=== PATIENT | male | born 1950 | race Caucasian/White ===

== ENCOUNTER 2018-02-18 11:25 | Emergency (ER) | payer MEDICARE, SELFPAY ==
[2018-02-18 11:28] VITALS: BP 147/92; PULSE 89; RESP 20; TEMP 36.9; O2SAT 98; BMI 34.4
--- NOTE | 2018-02-18 12:19 | ED.ABDPAIN ---
HPI - Abdominal Pain General Chief Complaint: Abdominal Pain Stated Complaint: TERRIBLE LOWER LEFT SIDED PAIN Time Seen by Provider: 02/18/18 11:49 Source: patient Mode of arrival: ambulatory Limitations: no limitations History of Present Illness HPI narrative: 68-year-old male, nonsmoker presents with a chief complaint of severe left lower quadrant pain that started about 1 week ago. It is gradual in onset and and has been rather persistent. His pain is worse with motion and improves with rest. He denies any radiation. He denies associated symptoms such as nausea, vomiting or diarrhea. He has had no fever or chills. His most recent colonoscopy was not all that long ago and did not show any abnormal findings. He denies any dysuria, frequency or urgency. He denies any history of kidney stones MD complaint: abdominal pain Onset (ago): day(s) Pain Consistency: constant Location: LLQ Severity: moderate Quality: cramping, stabbing and aching Radiation: none Migration to: no migration Relieving factors: rest Exacerbating factors: movement Associated symptoms: denies other symptoms Related Data Home Medications Medication Instructions Recorded Confirmed Vitamin 1 tab PO DAILY 02/18/18 02/18/18 allopurinol 300 mg PO DAILY 02/18/18 02/18/18 aspirin 81 mg PO DAILY 02/18/18 02/18/18 ciclopirox 1 applic TOPICAL BID 02/18/18 02/18/18 hydrocortisone 1 applic TOPICAL DAILY 02/18/18 02/18/18 mometasone 1 applic TOPICAL BID 02/18/18 02/18/18 naproxen 500 mg PO BID 02/18/18 02/18/18 omeprazole 1 cap PO DAILY 02/18/18 02/18/18 triamcinolone acetonide 1 applic TOPICAL BID 02/18/18 02/18/18 Previous Rx's Medication Instructions Recorded amoxicillin-pot clavulanate 1 tab PO BID #20 tab 02/18/18 [Augmentin] hydrocodone-acetaminophen 1 tab PO Q4-6H PRN #14 tab 02/18/18 ondansetron HCl [Zofran] 4 mg PO Q6-8H PRN #10 tab 02/18/18 Allergies Allergy/AdvReac Type Severity Reaction Status Date / Time No Known Drug Allergies Allergy Verified 02/18/18 11:34 Review of Systems Review of Systems All systems reviewed & are unremarkable except as noted in HPI and below Constitutional Denies chills, Denies fever(s), Denies lethargy and Denies weakness Eyes Denies change in vision, Denies eye discharge, Denies irritation and Denies loss of vision ENT Ears, Nose, Mouth, and Throat: Denies change in voice, Denies neck pain and Denies sore throat Cardiovascular Denies chest pain, Denies irregular heart rhythm, Denies lightheadedness, Denies palpitations, Denies dyspnea, Denies dyspnea on exertion and Denies orthopnea Respiratory Denies cough, Denies dyspnea, Denies dyspnea on exertion and Denies wheezing Gastrointestinal Gastrointestinal: Reports abdominal pain, Denies change in bowel habits, Denies diarrhea, Denies nausea and Denies vomiting Genitourinary Denies hematuria, Denies flank pain, Denies urinary incontinence and Denies urinary urgency Musculoskeletal Denies neck pain Integumentary/Breasts Denies pruritus, Denies erythema, Denies rash and Denies wounds Neurologic Denies confusion, Denies loss of vision and Denies weakness Psychiatric Denies anxiety, Denies confusion, Denies depression, Denies homicidal ideation and Denies suicidal ideation Endocrine Denies palpitations Hematologic/Lymphatic Denies easy bruising Allergic/Immunologic Denies wheezing [employer] Social History Smoking Status: Former smoker Exam Narrative Exam Narrative: 68-year-old male in mild distress, complaining of left lower quadrant pain Initial Vital Signs Initial Vital Signs: Vital Signs Temperature 98.4 F 02/18/18 11:28 Pulse Rate 89 02/18/18 11:28 Respiratory Rate 20 02/18/18 11:28 Blood Pressure 147/92 H 02/18/18 11:28 Pulse Oximetry 98 02/18/18 11:28 Const General: cooperative and well developed Nutritional Appearance: well nourished Orientation: alert, awake, oriented x3 and not confused HENOR Head: normal to inspection Ears: hearing grossly normal bilaterally Nose: external nose normal Eyes General: appearance normal, both eyes and all related structures Eyelids: eyelids normal Conjunctivae: conjunctivae normal Sclera: sclerae normal Pupils: PERRL EOM: EOM intact bilaterally Neck Neck: normal visual inspection, trachea midline, No lymphadenopathy, No midline deformity and No JVD Lymphatic: No lymphedema Resp Effort & Inspection: normal respiratory effort, able to speak in complete sentences, no respiratory distress and no use of accessory muscles Auscultation: clear to auscultation bilaterally, no rales, no rhonchi and no wheezes Cardio Rate: regular rate Rhythm: regular rhythm Heart Sounds: no click, no gallops, no murmurs and no rubs Pulses: normal peripheral pulses GI Inspection: non-distended Palpation: soft, no hepatosplenomegaly, No guarding, No pulsatile mass and tender Auscultation: normal bowel sounds Back/Spine/Pelvis Back: No CVA tenderness Cervical Spine: cervical ROM normal and No pain with cervical ROM Thoracic/Lumbar Spine: thoracic and lumbar spine normal to inspection Neuro General: alert, oriented x3, gait normal and no focal motor deficits Speech: speech normal Course Orders Ordered: ED Orders 02/18/18 12:15 Complete Blood Count AUTO DIFF Stat Comprehensive Metabolic Panel Stat Lipase Stat 02/18/18 12:52 CT abdomen pelvis w con Stat Discontinued Medications Sodium Chloride (Normal Saline 0.9%) 1,000 mls @ 150 mls/hr IV CONT OLIVE Last Infusion: 02/18/18 13:44 Dose: 0 mls/hr Admin: 02/18/18 12:26 Dose: 150 mls/hr Vital Signs - 8 hr 02/18/18 11:28 02/18/18 12:33 02/18/18 13:00 Temperature 98.4 F Pulse Rate 89 95 H 79 Respiratory Rate 20 Blood Pressure 147/92 H Blood Pressure [Right Arm] 147/88 H 144/97 H Pulse Oximetry 98 95 95 02/18/18 13:57 Temperature Pulse Rate 76 Respiratory Rate 16 Blood Pressure 143/93 H Blood Pressure [Right Arm] Pulse Oximetry 96 MDM - Abdominal Pain Differential Diagnosis Differential diagnosis: Likely abdominal pain, constipation and diverticulitis Medical Records Attestation: I reviewed the patient's medical records. Lab Data Attestation: I reviewed the patient's lab results. Result diagrams: 02/18/18 12:15 02/18/18 12:15 Lab Results 02/18/18 02/18/18 Range/Units 12:15 12:15 WBC 11.0 (4.5-11.0) X10^3/uL RBC 4.56 (4.5-5.9) X10^6/uL Hgb 14.5 (13.5-17.5) g/dL Hct 40.9 L (41-53) % MCV 89.6 (80-100) fL MCH 31.9 (26-34) PG MCHC 35.6 (30-36) % RDW 13.7 (11.6-14.8) % Plt Count 205 (150-400) X10^3/uL Neut % (Auto) 74.2 (50-75) % Lymph % (Auto) 12.8 L (25-40) % [place] % (Auto) 10.6 (3-14) % Eos % (Auto) 1.3 L (2-4) % Baso % (Auto) 1.1 (0-2) % Neut # (Auto) 8100 H (3930-6180) /uL Sodium 141 (137-145) mmol/L Potassium 4.0 (3.4-5.1) mmol/L Chloride 103 (98-107) mmol/L Carbon Dioxide 26 (22-32) mmol/L BUN 15 (9-20) mg/dL Creatinine 0.90 (0.66-1.25) mg/dL Estimated GFR > 60.0 (>60) mL/min BUN/Creatinine Ratio 16.7 (6-22) Glucose 94 (80-110) mg/dL Calcium 9.3 (8.4-10.2) mg/dL Total Bilirubin 1.9 H (0.2-1.3) mg/dL AST 19 (17-59) IU/L ALT 21 (21-72) IU/L Alkaline Phosphatase 59 (38-126) U/L Total Protein 7.3 (6.3-8.2) g/dL Albumin 4.3 (3.5-5.0) g/dL Globulin 3.0 (1.7-4.1) g/dL Albumin/Globulin Ratio 1.4 (1.0-2.8) Lipase 20 L (23-300) U/L Point of care testing: Urine Dip Bedside Urine Glucose Negative Bedside Urine Bilirubin - Negative Bedside Urine Ketone - Negative Urine Specific [place] 1.010 Bedside Urine Occult Blood - Negative Bedside Urine pH 6.0 Bedside Urine Protein - Negative Bedside Urine Urobilinogen - Negative Bedside Urine Nitrite - Negative Bedside Urine Leukocytes - Negative Esterase Imaging Data CT scan - abdomen: Radiologist's impression: [address] [address] [address] Scan Report Signed Patient: [facility]#: [id number] : [id number]:[id number] Age/Sex: 68 / MDate of Service: 02/18/18 Loc: ED Accession Number: [id number] Procedure: CT abdomen pelvis w con Ordering Provider: Geovany Hernandez D.O. PROCEDURE: CT ABDOMEN PELVIS W CON INDICATIONS: severe LLQ pain TECHNIQUE: After the administration of intravenous contrast, 5 mm thick sections acquired from the diaphragm to the symphysis. 5 mm coronal and sagittal reformats were acquired. For radiation dose reduction, the following was used: automated exposure control, adjustment of mA and/or kV according to patient size. COMPARISON: None. FINDINGS: Image quality: Excellent. ABDOMEN: Lung bases: Lung bases are clear. Heart size is normal. Solid organs: Mild hepatic steatosis. Gallbladder negative. Biliary system is non dilated. Pancreas enhances normally. Spleen is normal in size and enhancement. No adrenal nodules. Kidneys demonstrate normal size and enhancement, without hydronephrosis. Nonobstructive 3-4 mm right renal calculus. Simple appearing exophytic left renal cysts. Peritoneum and bowel: There are numerous colonic diverticula. Focal inflamed diverticulum seen at the junction of the descending sigmoid colon on image 63 series 2. No free air is seen. No evidence of abscess identified. There is pericolonic inflammatory fat stranding. No free fluid or air. The appendix is not clearly identified however no suspicious pericecal inflammatory changes are identified Nodes and vessels: No retroperitoneal or mesenteric adenopathy by size criteria. Aorta and inferior vena cava are normal in size. Miscellaneous: Small fat-containing umbilical hernia. PELVIS: Genitourinary: Bladder wall thickness is normal. Miscellaneous: Small bilateral fat-containing inguinal hernias. No pelvic adenopathy. Bones: No suspicious bony lesions. No vertebral body compression fractures. IMPRESSION: Acute colonic diverticulitis at the junction of the descending and sigmoid colon. No evidence of abscess. No free air. Nonobstructive right nephrolithiasis. Dictated by: Maurice Workman M.D. on 02/18/2018 at 13:22 Approved by: Maurice Workman M.D. on 02/18/2018 at 13:28 Discharge Plan Departure Patient Disposition: Home Clinical Impression: Diverticulitis Discharge Date/Time: 02/18/18 13:57 Interventions: ED Discharge Assessment Last Done: 02/18/18 13:57 Instructions: Diverticulitis Activity Restrictions/Additional Instructions: 1. Drink plenty of fluids with frequent small sips. 2. For the next 24 hours a clear liquid diet is advised. After that please employ a brat diet which would include bananas, rice, apples, toast. 3. Please take medications as directed. 4. Please follow-up with your doctor in the next 1-2 days. Call the office for an appointment. 5. Please return to the emergency Department for any worsening or persistent symptoms, such as increasing pain or fever. Prescriptions: New hydrocodone-acetaminophen 5-325 mg tablet 1 tab PO Q4-6H PRN (Reason: pain) Qty: 14 RF: 0 amoxicillin-pot clavulanate [Augmentin] 875-125 mg tablet 1 tab PO BID Qty: 20 RF: 0 ondansetron HCl [Zofran] 4 mg tablet 4 mg PO Q6-8H PRN (Reason: nausea and vomiting) Qty: 10 RF: 0 No Action hydrocortisone 2.5 % lotion 1 applic Topical DAILY RF: 0 triamcinolone acetonide 0.1 % ointment 1 applic Topical BID RF: 0 allopurinol 300 mg tablet 300 mg PO DAILY RF: 0 mometasone 0.1 % ointment 1 applic Topical BID RF: 0 naproxen 500 mg tablet 500 mg PO BID RF: 0 ciclopirox 0.77 % cream 1 applic Topical BID RF: 0 aspirin 81 mg Tablet,Delayed Release (Dr/Ec) 81 mg PO DAILY RF: 0 Vitamin 1 tab PO DAILY RF: 0 omeprazole 1 cap PO DAILY RF: 0
[2018-02-18] MEDS: SODIUM CHLORIDE 0.9% 1,000 ML 150 ML IV (12:26)
[2018-02-18 12:33] VITALS: BP 147/88; PULSE 95; O2SAT 95
[2018-02-18 12:33] LABS: Add Manual Diff / Slide Review NO; Basophils Percent Auto 1.1 % (0-2); Eosinophils Percent Auto 1.3 % (2-4); Hematocrit 40.9 % (41-53); Hemoglobin 14.5 g/dL (13.5-17.5); Lymphocytes Percent Auto 12.8 % (25-40); Mean Corpuscular HGB Conc 35.6 % (30-36); Mean Corpuscular Hemoglobin 31.9 PG (26-34); Mean Corpuscular Volume 89.6 fL (80-100); Monocytes Percent Auto 10.6 % (3-14); Neutrophils Absolute Auto 8100 /uL (3000-5900); Neutrophils Percent Auto 74.2 % (50-75); Platelet Count 205 X10^3/uL (150-400); Red Blood Cell Count 4.56 X10^6/uL (4.5-5.9); Red Cell Distribution Width 13.7 % (11.6-14.8)
[2018-02-18 12:40] LABS: Alanine Aminotransferase 21 IU/L (21-72); Albumin 4.3 g/dL (3.5-5.0); Albumin Globulin Ratio 1.4 (1.0-2.8); Alkaline Phosphatase 59 U/L (38-126); Aspartate Aminotransferase 19 IU/L (17-59); BUN Creatinine Ratio 16.7 (6-22); Bilirubin Total 1.9 mg/dL (0.2-1.3); Blood Urea Nitrogen 15 mg/dL (9-20); Calcium 9.3 mg/dL (8.4-10.2); Carbon Dioxide 26 mmol/L (22-32); Chloride 103 mmol/L (98-107); Estimated Glomerular Filt Rate > 60.0 mL/min (>60); Glucose 94 mg/dL (80-110); HEMOLYSIS < 15 (0-50); Lipase 20 U/L (23-300); Sodium 141 mmol/L (137-145); Total Protein 7.3 g/dL (6.3-8.2)
--- NOTE | 2018-02-18 12:52 | DI.CT.S_ITS ---
PROCEDURE: CT ABDOMEN PELVIS W CON INDICATIONS: severe LLQ pain TECHNIQUE: After the administration of intravenous contrast, 5 mm thick sections acquired from the diaphragm to the symphysis. 5 mm coronal and sagittal reformats were acquired. For radiation dose reduction, the following was used: automated exposure control, adjustment of mA and/or kV according to patient size. COMPARISON: None. FINDINGS: Image quality: Excellent. ABDOMEN: Lung bases: Lung bases are clear. Heart size is normal. Solid organs: Mild hepatic steatosis. Gallbladder negative. Biliary system is non dilated. Pancreas enhances normally. Spleen is normal in size and enhancement. No adrenal nodules. Kidneys demonstrate normal size and enhancement, without hydronephrosis. Nonobstructive 3-4 mm right renal calculus. Simple appearing exophytic left renal cysts. Peritoneum and bowel: There are numerous colonic diverticula. Focal inflamed diverticulum seen at the junction of the descending sigmoid colon on image 63 series 2. No free air is seen. No evidence of abscess identified. There is pericolonic inflammatory fat stranding. No free fluid or air. The appendix is not clearly identified however no suspicious pericecal inflammatory changes are identified Nodes and vessels: No retroperitoneal or mesenteric adenopathy by size criteria. Aorta and inferior vena cava are normal in size. Miscellaneous: Small fat-containing umbilical hernia. PELVIS: Genitourinary: Bladder wall thickness is normal. Miscellaneous: Small bilateral fat-containing inguinal hernias. No pelvic adenopathy. Bones: No suspicious bony lesions. No vertebral body compression fractures. IMPRESSION: Acute colonic diverticulitis at the junction of the descending and sigmoid colon. No evidence of abscess. No free air. Nonobstructive right nephrolithiasis. Dictated by: Maurice Workman M.D. on 02/18/2018 at 13:22 Approved by: Maurice Workman M.D. on 02/18/2018 at 13:28
[2018-02-18 13:00] VITALS: BP 144/97; PULSE 79; O2SAT 95
[2018-02-18 13:57] VITALS: BP 143/93; PULSE 76; RESP 16; O2SAT 96
== END 2018-02-18 13:57 | disposition home or self-care (01) ==
PROVIDERS: Emergency Provider Emergency Medicine
DX: K57.92 Diverticulitis of intestine, part unspecified, without perforation or abscess without bleeding (principal)
CPT/HCPCS: 36591; 74177; 80053; 81003; 83690; 85025; 96360; 99283; 99285; Q9967